=== PATIENT | female | born 1975 | race Caucasian/White ===

== ENCOUNTER 2017-06-25 05:21 | Observation (INO) | payer BC ==
--- NOTE | 2017-06-24 18:55 | MH ---
cc: JARED DASILVA DATE OF ADMISSION: 06/25/2017 HISTORY OF PRESENT ILLNESS: The patient is a 41-year-old 1, para 1 who presents with a history of irregular prolonged menstrual cycles and worsening pelvic pain. PAST MEDICAL HISTORY: Her past medical history is significant for: 1. Irritable bowel syndrome. 2. Depression. 3. Anxiety. PAST SURGICAL HISTORY: 1. Tonsillectomy. 2. . 3. Essure sterilization. OBSTETRICAL HISTORY: One delivered by . GYNECOLOGIC HISTORY: No STDs. She did have abnormal Pap smears from [id number] but they have been normal since then and her cycles are irregular as previously described coming every ten to fourteen days and then with worsening pain and cramping requiring pain medication. FAMILY HISTORY: Her mother has a history of irregular bleeding as well and hypothyroidism. Paternal grandfather has heart disease. Maternal grandmother has diabetes. Another maternal aunt also has diabetes. SOCIAL HISTORY: Social history is negative for cigarettes, alcohol or street drugs. The patient is and works as a patent paralegal. ALLERGIES: CODEINE. PHYSICAL EXAMINATION: HEIGHT: 5 feet 4. WEIGHT: 206. GENERAL: In general, she is in no acute distress. HEART: Regular rate and rhythm. LUNGS: Clear to auscultation bilaterally. ABDOMEN: The abdomen is soft, nontender and nondistended. PELVIC: On bimanual exam, the patient has an approximately an 8 to 10 weeks sized uterus nontender. EXTREMITIES: Lower extremities nontender and nonedematous. IMPRESSION Menometrorrhagia that has failed medical therapy and desires operative intervention. The risks, benefits and alternatives have been reviewed by laparoscopic-assisted vaginal hysterectomy with bilateral salpingectomies. All questions have been answered. The patient does desire to proceed. MD TERRELL Christensen/[facility] /6:07 PM /6:42 PM
[~2017-06-25] VITALS: Ht 162.6 cm; Wt 96.0 kg
[~2017-06-25 05:21] MED LIST: ESCI10TA PO; FERR325C PO
[2017-06-25] MEDS ORDERED: SODIUM CHLORID 0.9% 500 ML IV PRN (06:00)
[2017-06-25] MEDS ORDERED: POVIDONE IODINE 5% (ANTISEPSIS KIT) 4 APPLICATIONS EACH NARE PRN (06:00)
[2017-06-25] MEDS ORDERED: LACTATED RINGER'S 1000 ML IV PRN (06:00)
[2017-06-25] MEDS ORDERED: METOPROLOL TARTRATE 25 MG TAB PO PRN (06:00)
[2017-06-25] MEDS ORDERED: CHLORHEXIDINE GLUCONATE 2 % 1 PACK (2 CLOTHS) TOPICAL PRN (06:00)
[2017-06-25] MEDS ORDERED: INSULIN HUMAN REGULAR 1,000 UNITS/10 ML VIAL SQ PRN (06:00)
[2017-06-25 06:17] VITALS: BP 128/73; PULSE 86; RESP 16; TEMP 99.3; O2SAT 97
[2017-06-25] MEDS: ceFAZolin 2 GM PREMIX 50 ML IV SCH ×2 (06:29→10:47)
[2017-06-25 06:34] LABS: AUTOMATED NEUTROPHIL # 3.1 TH/MM3 (1.8-7.7); BASOPHIL % 0.5 % (0.0-2.0); EOSINOPHIL # 0.1 TH/MM3 (0-0.4); EOSINOPHIL % 1.4 % (0.0-4.0); HEMATOCRIT 37.8 % (35.0-46.0); HEMO FLAGS DIFF FINAL; LYMPH % 31.7 % (9.0-44.0); LYMPHOCYTE # 1.7 TH/MM3 (1.0-4.8); MEAN CELL VOLUME 80.4 FL (80.0-100.0); MEAN CORPUSCULAR HEMOGLOBIN 27.6 PG (27.0-34.0); MEAN CORPUSCULAR HGB CONC 34.3 % (32.0-36.0); MONO % 8.6 % (0.0-8.0); NEUT % 57.8 % (16.0-70.0); PLATELET COUNT 192 TH/MM3 (150-450); RED BLOOD COUNT 4.71 MIL/MM3 (4.00-5.30); RED CELL DISTRIBUTION WIDTH 14.4 % (11.6-17.2); WHITE BLOOD COUNT 5.3 TH/MM3 (4.0-11.0)
[2017-06-25] MEDS ORDERED: APREPITANT 40 MG CAP ONE (06:45)
[2017-06-25] MEDS ORDERED: ESTROGENS CONJUGATED VAG CREA 15 APPL/30 GM TUBE ONE (06:58)
[2017-06-25] MEDS ORDERED: LIDOCAINE 1%/EPINEPHrine 1:100,000 SOLN 20 ML VIAL ONE (06:58)
[2017-06-25 07:06] LABS: BETA HCG QUANT LESS THAN 1 MIU/ML (0-5)
[2017-06-25] MEDS ORDERED: FAMOTIDINE 20 MG/2 ML VIAL ONE (07:28)
[2017-06-25] MEDS ORDERED: MIDAZOLAM HCL 2 MG/2 ML VIAL ONE (07:28)
[2017-06-25] MEDS ORDERED: fentaNYL CITRATE 250 MCG/5 ML AMP ONE (07:28)
[2017-06-25] MEDS ORDERED: ACETAMINOPHEN 1000 MG/100 ML VIAL IV ONE (07:28)
[2017-06-25] MEDS ORDERED: SUGAMMADEX SODIUM 200 MG/2 ML VIAL IV PUSH ONE ×2 (08:44)
[2017-06-25] MEDS ORDERED: *morphine SULFATE 8 MG/ML PERIprocedure ONLY ONE ×3 (09:57→10:37)
[2017-06-25] MEDS ORDERED: oxyCODONE/ACETAMINOPHEN 5 MG/325 MG TAB PO PRN ×2 (10:15)
[2017-06-25] MEDS ORDERED: PROMETHAZINE HCL 25 MG TAB PO PRN (10:15)
[2017-06-25] MEDS ORDERED: LORazepam 0.5 MG TAB PO PRN (10:15)
[2017-06-25] MEDS ORDERED: ONDANSETRON ODT 4 MG TAB PO PRN (10:15)
[2017-06-25] MEDS ORDERED: IBUPROFEN 600 MG TAB PO PRN (10:15)
[2017-06-25] MEDS ORDERED: diphenhydrAMINE HCL 50 MG/ML VIAL IV PRN (10:15)
[2017-06-25] MEDS ORDERED: MORPHINE SULFATE 30 MG/30 ML PCA IV SCH (10:15)
[2017-06-25] MEDS ORDERED: SODIUM CHLORIDE 0.9% FLUSH 10 ML FLUSH IV FLUSH PRN (10:15)
[2017-06-25] MEDS ORDERED: ONDANSETRON HCL 4 MG/2 ML VIAL IVP PRN (10:15)
[2017-06-25] MEDS ORDERED: diphenhydrAMINE HCL 25 MG CAP PO PRN (10:15)
[2017-06-25] MEDS ORDERED: NALOXONE HCL 0.4 MG/ML AMP IV PRN (10:15)
[2017-06-25] MEDS ORDERED: DO NOT ADM ANY ANTICOAGULANT DRUGS PRN (10:30)
[2017-06-25] MEDS ORDERED: *ONDANSETRON 4 MG VIAL PERIprocedural Use ONLY ONE (10:40)
[2017-06-25] MEDS: KETOROLAC TROMETHAMINE 30 MG/ML (IVP) VIAL IVP PRN ×2 (10:55→17:02)
[2017-06-25] MEDS: LACTATED RINGER'S 1000 ML INJ 1,000 ML IV SCH (10:57)
[2017-06-25] MEDS ORDERED: PILL SPLITTER OTHER PRN (11:00)
[2017-06-25] MEDS: DOCUSATE SODIUM 100 MG CAP PO SCH ×2 (11:36→23:00)
[2017-06-25] MEDS: PROMETHAZINE INJ 25 MG/ML VIAL IM PRN ×2 (11:36→17:09)
[2017-06-25] MEDS ORDERED: LACTATED RINGER'S 1000 ML INJ 1,000 ML IV ONE (12:00)
[2017-06-25] MEDS ORDERED: ONDANSETRON HCL 4 MG/2 ML VIAL IV PUSH ONE (12:00)
[2017-06-25] MEDS ORDERED: PROPOFOL 200 MG/20 ML AMP IV ONE (12:00)
[2017-06-25] MEDS ORDERED: ePHEDrine/NS 25 MG/5 ML SYR IV ONE (12:00)
[2017-06-25 12:17] VITALS: BP 128/60; PULSE 80; RESP 16; TEMP 97.6
[2017-06-25] MEDS: PCA - TOTAL MG MORPHINE DELIVERED PER SHIFT SCH ×2 (15:14→22:00)
[2017-06-25 15:50] VITALS: BP 111/70; PULSE 90; RESP 16; TEMP 98.3
[2017-06-25 19:50] VITALS: BP 112/71; PULSE 97; RESP 20; TEMP 98.3; O2SAT 95
[2017-06-25] MEDS ORDERED: SODIUM CHLORIDE 0.9% FLUSH 10 ML FLUSH IV FLUSH SCH (21:00)
[2017-06-25] MEDS ORDERED: ZOLPIDEM TARTRATE 5 MG TAB PO PRN (21:00)
[2017-06-25 23:54] VITALS: BP 105/65; PULSE 94; RESP 18; TEMP 99
[2017-06-26] MEDS: LACTATED RINGER'S 1000 ML INJ 1,000 ML IV SCH (03:00)
[2017-06-26 05:00] VITALS: BP 114/71; PULSE 81; RESP 18; TEMP 99.2
[2017-06-26] MEDS: PCA - TOTAL MG MORPHINE DELIVERED PER SHIFT SCH (05:29)
[2017-06-26 06:44] LABS: BASOPHIL % 0.1 % (0.0-2.0); EOSINOPHIL % 0.2 % (0.0-4.0); HEMATOCRIT 36.3 % (35.0-46.0); HEMO FLAGS DIFF FINAL; LYMPHOCYTE # 1.6 TH/MM3 (1.0-4.8); MEAN CELL VOLUME 81.2 FL (80.0-100.0); MEAN CORPUSCULAR HEMOGLOBIN 27.1 PG (27.0-34.0); MEAN CORPUSCULAR HGB CONC 33.3 % (32.0-36.0); MONO % 4.9 % (0.0-8.0); NEUT % 74.8 % (16.0-70.0); PLATELET COUNT 187 TH/MM3 (150-450); RED BLOOD COUNT 4.47 MIL/MM3 (4.00-5.30); RED CELL DISTRIBUTION WIDTH 14.9 % (11.6-17.2)
[2017-06-26 07:21] LABS: BICARBONATE 24.8 MEQ/L (21.0-32.0); POTASSIUM 3.4 MEQ/L (3.5-5.1)
[2017-06-26 09:15] VITALS: BP 107/68; PULSE 78; RESP 18; TEMP 98.4
[2017-06-26] MEDS: DOCUSATE SODIUM 100 MG CAP PO SCH (09:21)
[2017-06-26] MEDS ORDERED: ONDA4TAB7 PO (12:30)
[2017-06-26] MEDS ORDERED: OXYC1TAB63 PO (12:30)
[2017-06-26] MEDS ORDERED: IBUP-232 PO (12:30)
--- NOTE | 2017-06-26 12:36 | HHI.PR ---
Subjective Remarks Doing well, pt is uncomfortable with gas pain and incisional pain. +flatus. mild nausea, no vomiting. denies SOB/CP Objective Vital Signs Vital Signs Date Time Temp Pulse Resp B/P Pulse Ox O2 Delivery O2 Flow Rate FiO2 06/26/17 09:15 98.4 78 18 107/68 06/26/17 05:29 20 06/26/17 05:00 99.2 81 18 114/71 06/25/17 23:54 99.0 94 18 105/65 06/25/17 22:00 18 06/25/17 19:50 98.3 97 20 112/71 95 06/25/17 15:50 98.3 90 16 111/70 06/25/17 15:14 18 I/O 06/25/17 06/25/17 06/25/17 06/26/17 06/26/17 06/26/17 07:00 15:00 23:00 07:00 15:00 23:00 Intake Total 100 ml 1705 ml 1050 ml Output Total 150 ml 700 ml 1600 ml 300 ml Balance -50 ml 1005 ml -550 ml -300 ml Intake Oral 500 ml 300 ml IV Total 100 ml 1205 ml 750 ml Output Urine Total 150 ml 700 ml 1600 ml 300 ml # Voids 2 Result Diagram: 06/26/1761806/26/17618 Objective Remarks PULM- CTA b/l, CV-regular rate and rhythm. Abdomen +BS, soft and non-distended. Incisions is clean and dry. Ext no CCE. A/P Assessment and Plan Post Op Day 1 Doing well Home today likely and return to office in two weeks. Abdullahi Tirado MD Jun 26, 2017 12:36
[2017-06-26] MEDS ORDERED: SIMETHICONE 80 MG CHEWABLE TAB CHEW PRN (13:00)
--- NOTE | 2017-06-27 18:02 | MP ---
cc: ABDULLAHI TIRADO DATE OF SURGERY: 06/25/2017 PREOPERATIVE DIAGNOSIS: Menometrorrhagia POSTOPERATIVE DIAGNOSIS: Menometrorrhagia OPERATION: Laparoscopic assisted vaginal hysterectomy with left salpingo-oophorectomy, right salpingectomy. SURGEON Abdullahi Tirado MD. CHARTER BUS DRIVER: Neetu Scott MD. ANESTHESIA: General plus local. ESTIMATED BLOOD LOSS: 150 cc DRAINS: Miller to gravity with 300 cc of clear yellow urine at the end of the case. COUNTS: Correct x2. DISPOSITION Stable in the PACU INDICATIONS FOR PROCEDURE: Patient is a 41-year-old 1, para 1, who presents with a history of menorrhagia, dysmenorrhea, for desired operative intervention. DESCRIPTION OF PROCEDURE: After informed consent was obtained, the patient was taken to the operating room. She was prepped and draped in normal sterile fashion for surgery. The Miller catheter is inserted sterilely along with a speculum and a uterine manipulator, gloves were then changed and attention was turned to the abdominal portion of the case. A 5 mm skin incision made in the umbilical fold. A 5 millimeter trocar was inserted under direct visualization. Pneumoperitoneum was obtained. The patient was noted to have a slightly enlarged uterus, grossly normal right tube and ovary. The left ovary appears cystic and is adhered densely to the posterior side of the uterus making it rather difficult to separate and see the ovary to ensure if there is some possible endometriosis on the left side. The liver edge and gallbladder appeared grossly within normal limits. No other abnormalities were noted. On the patient's right side, the mesosalpinx below the patient's fallopian tube is cauterized and divided going all the way down to utero-ovarian ligament. This was also cauterized and divided. Next the round ligament also on the right side is cauterized and divided. Successive bites were taken, cauterizing, and dividing the bladder flap was developed taking down the vesicouterine peritoneum and finally cauterizing and dividing the uterine artery on the right side. Next, on the patient's left side because of the left ovary and the adhesions that are noted to the sidewall, initially attempted to be taken down, however, bleeding was encountered, but the infundibulopelvic ligament on the patient's left side was cauterized and divided high up on the pedicles well out of the way of the ureter. This was taken down along the mesosalpinx. The round ligament was then cauterized and divided. The vesicouterine peritoneum is developed and connected to meet the bladder flap that was created from the right side. Next, successive bites were taken, cauterized and divided until the lateral of the uterine artery was reached. This was also cauterized and divided. Good hemostatic result is noted. The abdomen was then deflated. Attention was turned to the vaginal portion of the case. A weighted speculum was inserted into the vagina. The cervix was circumferentially injected with 0.25% Marcaine with epinephrine and then the Bovie is used to score the cervix. The anterior cul-de-sac was entered using tenotomy scissors and pickups. Next using the same scissors and pickups, the posterior cul-de-sac was enterd. The weighted speculum was inserted, the uterosacral ligament was clamped, cut and suture ligated initially on the patient's right side, than on the patient's left, successive bites taken, clamping, cutting and suture ligating until the uterus is free of its abdominal pelvic attachments. The uterus was delivered and passed off to be sent to pathology for further identification. The pedicles were done in step, but there was noted to be a small amount of bleeding coming from the left side of the patient's pelvic sidewall. This was picked up using pickups, and the cauterized using the Bovie. Next the anterior and posterior portions of the vagina were reapproximated starting at the angles and working to the midline using [id number] stitches. Once this was done hemostasis was assured. Gloves were changed and a final look was taken using the laparoscope. All pedicles were inspected and hemostasis was again ensured. Once this was done, the abdomen was deflated one last time. The skin incisions were closed using 4-0 Monocryl suture in a subcuticular fashion. Steri-Strips and Band-Aids were placed. The patient was then awakened, extubated and taken to the Recovery Room. MD TERRELL Christensen/[facility] /8:19 PM /5:29 PM
== END 2017-06-26 17:40 | disposition home or self-care (01) ==
LOC: HSDC 05:21 → HSDI 10:16 → H1EA 11:15
PROVIDERS: ADMIT Obstetrics & Gynecology; ATTEND Obstetrics & Gynecology
DX: N92.1 Excessive and frequent menstruation with irregular cycle (principal)
CPT/HCPCS: 00840; 58552; 80048; 84702; 85025; 86850; 86900; 86901; 88307; 94150; 96361; 96372; 96374; G0378; J0131; J0690; J1200; J1885; J2250; J2270; J2405; J2550; J3010; J7120; J8501